=== PATIENT | male | born 1950 | race African-American/Black ===

== ENCOUNTER 2020-11-13 04:18 | Emergency (ER) | payer MEDICARE, MEDICAID, OTHER ==
[~2020-11-13] VITALS: Ht 177.8 cm; Wt 60.0 kg
[2020-11-13] MEDS ORDERED: NALO4SPR BOTHNSTRLS (05:07)
[2020-11-13 05:37] LABS: *AMPHETAMINES SCREEN URINE NEGATIVE (NEGATIVE); *BARBITURATES SCREEN URINE NEGATIVE (NEGATIVE); *BENZODIAZEPINES SCREEN URINE NEGATIVE (NEGATIVE); *COCAINE SCREEN URINE PRESUMTIVE POSITIVE (NEGATIVE); METHADONE URINE SCREEN NEGATIVE (NEGATIVE)
[2020-11-13 05:38] LABS: CANNABINOID URINE SCREEN NEGATIVE (NEGATIVE); OPIATES URINE SCREEN NEGATIVE (NEGATIVE); PHENCYCLIDINE URINE SCREEN NEGATIVE (NEGATIVE)
[2020-11-13 07:40] LABS: HEMATOCRIT 47.2 % (42.0-52.0); MEAN CORPUSCULAR VOLUME 91.6 fL (80.0-94.0); PLATELET 186 x1000/uL (130-400); RED BLOOD CELL COUNT 5.15 mill/uL (4.7-6.1); RED CELL DISTRIBUTION WIDTH 14.2 % (11.6-14.6)
[2020-11-13 07:50] LABS: CHLORIDE 110 mEq/L (98-107)
[2020-11-13 07:55] LABS: ETHANOL BLOOD < 10 mg/dL
[2020-11-13 08:30] VITALS: BP 136/73
== END 2020-11-13 09:26 | disposition home or self-care (01) ==
LOC: ER 04:18
DX: T40.411A Poisoning by fentanyl or fentanyl analogs, accidental (unintentional), initial encounter (principal); Y92.9 Unspecified place or not applicable
CPT/HCPCS: 36415; 80053; 80305; 80320; 85027; 93005; 99284; Z7610; G0480

== ENCOUNTER 2020-11-23 14:15 | Emergency (ER) | payer MEDICARE, MEDICAID, OTHER ==
[~2020-11-23] VITALS: Ht 180.3 cm; Wt 77.0 kg
[2020-11-23 14:45] LABS: BASOPHILS % 0.5 % (0.0-2.0); EOSINOPHILS % 0.8 % (0.0-5.0); HEMATOCRIT. 45.5 % (42.0-52.0); HEMOGLOBIN. 15.3 g/dL (14.0-18.0); LYMPHOCYTES % 17.9 % (20.0-50.0); MEAN CORPUSCULAR HEMOGLOBIN 31.3 pg (28.0-32.0); MEAN CORPUSCULAR VOLUME 93.3 fL (80.0-94.0); MEAN PLATELET VOLUME 9.7 fl (7.4-10.4); MONOCYTES % 10.2 % (2.0-8.0); NEUTROPHILS % 70.6 % (40.0-76.0); PLATELET 128 x1000/uL (130-400); RED BLOOD CELL COUNT 4.88 mill/uL (4.7-6.1)
[2020-11-23 14:51] LABS: CHLORIDE 109 mEq/L (98-107)
[2020-11-23 14:55] LABS: ETHANOL BLOOD < 10 mg/dL
[2020-11-23 15:58] LABS: CLARITY URINE CLEAR (CLEAR); COLOR URINE YELLOW (YELLOW); KETONES URINE TRACE (NEGATIVE); LEUKOCYTE ESTERASE URINE NEGATIVE (NEGATIVE); NITRITE URINE NEGATIVE (NEGATIVE); OCCULT BLOOD URINE NEGATIVE (NEGATIVE); PH URINE 5.5 (4.5-8.0); PROTEIN URINE 2+ (NEGATIVE); SPECIFIC GRAVITY URINE 1.026 (1.005-1.030)
[2020-11-23 16:09] LABS: *AMPHETAMINES SCREEN URINE NEGATIVE (NEGATIVE); *BARBITURATES SCREEN URINE NEGATIVE (NEGATIVE); *BENZODIAZEPINES SCREEN URINE NEGATIVE (NEGATIVE); *COCAINE SCREEN URINE PRESUMTIVE POSITIVE (NEGATIVE)
[2020-11-23 16:10] LABS: CANNABINOID URINE SCREEN NEGATIVE (NEGATIVE); METHADONE URINE SCREEN NEGATIVE (NEGATIVE); OPIATES URINE SCREEN NEGATIVE (NEGATIVE); PHENCYCLIDINE URINE SCREEN NEGATIVE (NEGATIVE)
[2020-11-23] MEDS ORDERED: NALO4SPR BOTHNSTRLS (16:50)
[2020-11-23 17:06] VITALS: BP 123/72
== END 2020-11-23 17:11 | disposition home or self-care (01) ==
LOC: ER 14:34
DX: T40.5X1A Poisoning by cocaine, accidental (unintentional), initial encounter (principal); Y92.89 Other specified places as the place of occurrence of the external cause; F17.200 Nicotine dependence, unspecified, uncomplicated
CPT/HCPCS: 36415; 80053; 80305; 80307; 80320; 80329; 81003; 85025; 93005; 99284; G0480